=== PATIENT | male | born 1975 | race Caucasian/White ===

== ENCOUNTER 2017-08-22 16:54 | Emergency (ER) | payer MEDICAID ==
[~2017-08-22] VITALS: Ht 185.4 cm; Wt 72.7 kg
[2017-08-22 17:07] VITALS: BP 124/78
[2017-08-22] MEDS ORDERED: HYDR-569 PO (18:04)
[2017-08-22] MEDS ORDERED: IBUP-1984 PO (18:04)
== END 2017-08-22 18:40 | disposition home or self-care (01) ==
LOC: ER 16:55
DX: S93.601A Unspecified sprain of right foot, initial encounter (principal); W18.30XA Fall on same level, unspecified, initial encounter; Y93.01 Activity, walking, marching and hiking; Y92.89 Other specified places as the place of occurrence of the external cause; Y99.8 Other external cause status
CPT/HCPCS: 73630; 99284; A6449

== ENCOUNTER 2018-01-12 10:30 | Outpatient (CLI) | payer MEDICAID ==
[~2018-01-12 10:30] MED LIST: HYDR-569 PO
[2018-01-12 10:31] VITALS: BP 113/72
== END 2018-01-12 11:13 | disposition home or self-care (01) ==
LOC: ORTHO 10:30
PROVIDERS: ATTEND Nurse Practitioner Family
DX: S93.412D Sprain of calcaneofibular ligament of left ankle, subsequent encounter (principal)
CPT/HCPCS: 99213

== ENCOUNTER 2018-02-09 10:15 | Outpatient (CLI) | payer MEDICAID ==
[2018-02-09 10:12] VITALS: BP 125/74
[~2018-02-09 10:15] MED LIST changes: +HYDR-4383 PO; -HYDR-569 PO
== END 2018-02-09 10:44 | disposition home or self-care (01) ==
LOC: ORTHO 10:15
PROVIDERS: ATTEND Nurse Practitioner Family
DX: S93.412D Sprain of calcaneofibular ligament of left ankle, subsequent encounter (principal); X58.XXXD Exposure to other specified factors, subsequent encounter; Y93.67 Activity, basketball
CPT/HCPCS: 99213

== ENCOUNTER 2018-08-07 16:02 | Emergency (ER) | payer MEDICAID ==
[~2018-08-07] VITALS: Ht 185.4 cm; Wt 68.2 kg
[2018-08-07 16:17] VITALS: BP 124/73
[2018-08-07] MEDS ORDERED: TETanus/Pertussis (Acell)/Diphther VAC/PF (Tdap-Adult) 0.5ml syringe IM ONE (17:10)
[2018-08-07] MEDS ORDERED: LIDOcaine 1% w/epiNEPHrine 1:200,000 30ml vial IM ONE (17:10)
== END 2018-08-07 17:54 | disposition home or self-care (01) ==
LOC: ER 16:03
DX: S90.852A Superficial foreign body, left foot, initial encounter (principal); Z79.899 Other long term (current) drug therapy; W45.8XXA Other foreign body or object entering through skin, initial encounter; W25.XXXA Contact with sharp glass, initial encounter; Y93.89 Activity, other specified; Y92.89 Other specified places as the place of occurrence of the external cause; Y99.8 Other external cause status
CPT/HCPCS: 10120; 73630; 90471; 90715; 99284; J3490

== ENCOUNTER 2018-11-23 17:39 | Emergency (ER) | payer MEDICAID, OTHER ==
[~2018-11-23] VITALS: Ht 185.4 cm; Wt 66.0 kg
[2018-11-23 17:54] VITALS: BP 113/74
[2018-11-23] MEDS ORDERED: LIDOcaine 1% w/epiNEPHrine 1:200,000 30ml vial IM ONE (20:00)
== END 2018-11-23 21:45 | disposition home or self-care (01) ==
LOC: ER 17:40
DX: S21.212A Laceration without foreign body of left back wall of thorax without penetration into thoracic cavity, initial encounter (principal); F10.99 Alcohol use, unspecified with unspecified alcohol-induced disorder; Z79.899 Other long term (current) drug therapy; W26.8XXA Contact with other sharp object(s), not elsewhere classified, initial encounter; Y93.89 Activity, other specified; Y92.89 Other specified places as the place of occurrence of the external cause; Y99.8 Other external cause status; Y90.9 Presence of alcohol in blood, level not specified
CPT/HCPCS: 12002; 99283

== ENCOUNTER 2019-01-04 11:29 | Emergency (ER) | payer MEDICAID ==
[~2019-01-04] VITALS: Ht 185.4 cm; Wt 68.2 kg
[2019-01-04 12:06] VITALS: BP 105/76
== END 2019-01-04 12:06 | disposition home or self-care (01) ==
LOC: ER 11:30
DX: Z02.89 Encounter for other administrative examinations (principal); M77.11 Lateral epicondylitis, right elbow
CPT/HCPCS: 99281